=== PATIENT | male | born 1985 ===

== ENCOUNTER 2016-10-26 02:50 | Emergency (ER) | payer OTHER ==
--- NOTE | 2016-10-26 04:04 | ED ORDER SUMMARY ---
..... Patient: PRACHI ALMEIDA OrderSheet [facility] VisitID: [id number] [place] [address] 31y, M Registration Date/Time: 10/26/2016 ORDER SHEET Weight: 81.6 kg (stated) Allergies: No Known Drug Allergy GENERAL ORDERS: Rapid Influenza Screen (Nasal Pharyngeal) (swab) Urgent (03:12 10/26/2016 Javier RICE) (Ack 3:15 CHagerty ER Order Tracer) (3:21 TLewis R.N.) Chest 2V Urgent (03:29 10/26/2016 Javier RICE) (Ack 3:33 CHagerty ER Order Tracer) (3:56 CHagerty ER Order Tracer) MEDICATION ORDERS: Toradol IM 60 mg (NOW) (03:12 10/26/2016 Javier RICE) (Cancelled: Patient Refusal3:38 JQuivey R.N.) DuoNeb Neb Tx 1 unit dose (NOW) (03:29 10/26/2016 Javier RICE) (Ack 3:32 CHagerty ER Order Tracer) (3:56 CHagerty ER Order Tracer) Prednisone PO 60 mg (NOW) (03:29 10/26/2016 Javier RICE) (3:38 JQuivey R.N.) Levofloxacin PO 500 mg (NOW) (04:00 10/26/2016 Javier RICE) (4:08 TLewis R.N.) IV FLUIDS: ORDER SHEET NOTES: [Electronically signed by Carlos Wiley R.N. (04:11 10/26/2016)] [Electronically signed by Mariia Ayoub MD (15:44 10/31/2016)] [Electronically locked/signed by Carlos Wiley R.N. (04:11 10/26/2016)]
--- NOTE | 2016-10-26 04:04 | ED NURSING NOTES ---
Clinical Report - Nurses [facility] [address] [place] [address] 10/26/2016 2:53 Patient: PRACHI ALMEIDA TRIAGE Triage time 03:01. Acuity: LEVEL 4. Chief Complaint: COUGH, SORE THROAT and BODY ACHES. --03:06 Carlos Wiley R.N. 02:56 10/26/16. BP: 121/73. HR: 84. RR: 15. O2 saturation: 96%. Temp: 97.5 F. --03:06 Carlos Wiley R.N. Weight: 81.6 kg stated. Height/Length: 68 inches Per Patient. BMI: 27.4. --03:06 Carlos Wiley R.N. Medications None. --03:04 Carlos Wiley R.N. Allergies No Known Drug Allergy. --03:04 Carlos Wiley R.N. History Onset. (days ago). ( Pt was seen at [facility] and left AMA. Nothing was done at [facility].). 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 PAST MEDICAL HX: Immunizations: up-to-date. SURGERY HX: ( radial fx). SOCIAL HX: Current every day heavy tobacco smoker (cigarette)- 1 pack per day. No alcohol use or drug use. --03:06 Carlos Wiley R.N. PROBLEMS: no known problems. Interventions ID band on patient. To treatment room. --03:06 Carlos Wiley R.N. PHYSICAL ASSESSMENT ( Pt is also complaining of left sided jaw pain due to a cavity. Pt has not seen a dentist.). GENERAL / NEURO / PSYCH: Alert. Oriented X 4. Appears in no acute distress. HEENT: Pupils equal, round and reactive to light. Mucous membranes are pink. RESPIRATORY: Respirations not labored. Nonproductive cough. Chest nontender. Fine crackles in the right lung base. CVS: Normal sinus rhythm noted. Capillary refill less than 2 seconds. Pulses within normal limits. GI / : Abdomen soft and nontender and normal bowel sounds. SKIN: Skin intact. Skin is warm and dry. Normal skin turgor. --03:07 Carlos Wiley R.N. NURSING PROGRESS NOTES Two patient identifiers checked. Call light placed in reach. Side rails up x 1. Bed placed in lowest position. Brakes of bed on. --03:08 Carlos Wiley R.N. 03:38 10/26/2016 Prednisone PO 60 mg given. Allergies verified and confirmed 5 rights. --03:38 Manish Chao R.N. 03:31. Patient transported to radiology by stretcher with tech. --03:39 Manish Chao R.N. 03:36. Patient returned from radiology by stretcher with tech. --03:39 Manish Chao R.N. 03:46 10/26/2016 Duoneb (Ipratropium-Albuterol) Neb TX 1 unit dose given. Given by the respiratory therapist. Allergies verified and confirmed 5 rights. --03:56 Jeramie Bell, ER Real Estate Development Manager 04:08 10/26/2016 Levofloxacin PO 500 mg given. Allergies verified and confirmed 5 rights. --04:08 Carlos Wiley R.N. DISPOSITION / DISCHARGE Departure time: 0410. Condition at departure: improved. No learning barriers present. Discharge instructions provided and reviewed with the patient. Reviewed warnings. Reviewed medication(s). Treatments reviewed. Patient verbalized understanding. Written instructions provided in Czech. The patient was discharged by the physician. He was discharged home and unaccompanied at time of discharge. He left the Emergency Department ambulatory and via private vehicle. Patient driving. --04:11 Carlos Wiley R.N. 04:09 10/26/16. BP: 123/64. HR: 81. RR: 18. O2 saturation: 95%. Pain level now 11/28. --04:11 Carlos Wiley R.N. Locked/Released at 10/26/2016 4:11 by Carlos Wiley R.N.
--- NOTE | 2016-10-26 04:04 | ED CLINICAL REPORT ---
Clinical Report - Physicians/Mid Levels [facility] [address] [place] [place] [address] 10/26/2016 2:53 Patient: PRACHI ALMEIDA Time Seen: 03:11. Arrived- By private vehicle. Historian- patient. HISTORY OF PRESENT ILLNESS Chief Complaint: COUGH, SORE THROAT, CHILLS and MUSCLE ACHES. This started about 3 days ago and is still present. The illness is described as moderate. The patient has had a cough, a sore throat, nasal congestion, fever and chills. He has had muscle aches. No sputum production, difficulty breathing, chest discomfort or pain or hoarseness. No nasal discharge, sinus pressure, sinus drainage or ear pain. Additional history - No known contact with a sick individual. Similar symptoms previously: None. Recent medical care: Not recently seen/assessed. REVIEW OF SYSTEMS The patient has had a headache. No eye discomfort, nausea, vomiting, diarrhea or abdominal pain. No hay fever, pedal edema, calf pain, difficulty with urination or skin rash. No enlarged lymph nodes or joint pain. All systems otherwise negative, except as recorded above. PAST HISTORY Problems: no known problems. Additional Surgeries: Wrist. Medications: None. Allergies: No Known Drug Allergy. SOCIAL HISTORY Smoker- current status unknown. No alcohol use or drug use. ADDITIONAL NOTES The nursing notes have been reviewed. PHYSICAL EXAM Vital Signs: 10/26/2016 02:56 BP: 121/73. HR: 84. RR: 15. O2 saturation: 96%. Temp: 97.5 F. Have been reviewed. Appearance: Alert. No acute distress. (Pt appears moderately uncomfortable.). Eyes: Pupils equal, round and reactive to light. Eyes normal inspection. ENT: Nose normal. Pharynx normal. Uvula midline. Neck: Normal inspection. Neck supple. CVS: Normal heart rate and rhythm. Heart sounds normal. Pulses normal. Respiratory: No respiratory distress. Breath sounds normal. (PT coughs with every exhalation.). Abdomen: Soft and nontender. Back: Normal inspection. No CVA tenderness. Skin: Skin warm and dry. Normal skin color. No rash. Normal skin turgor. Extremities: Extremities exhibit normal ROM. No lower extremity edema. Neuro: Oriented X 3. No motor deficit. No sensory deficit. LABS, X-RAYS, AND EKG Chest X-ray: Small, patchy infiltrate in the right lower lobe. Consistent with pneumonia. Normal heart size. Mediastinum normal. Great vessels normal. Soft tissues normal. No fracture. No bony lesion present. Views: PA and lateral. Technique: good. The X-rays were independently viewed by me and interpreted contemporaneously by me. Prior films were not available for comparison. Laboratory Tests: Rapid Influenza Screen: ([place]: 10/26/2016 03:20) ( MsgRcvd 10/26/2016 03:36) Final results SPECIMEN DESCRIPTION: SWAB Test Result Flag Units (Reference) RAPID INFLUENZA SCREEN CALLED TO: NA -- DATE: 10/26/16 INFLUENZA A: NEGATIVE SCREEN FOR INFLUENZA A INFLUENZA B: NEGATIVE SCREEN FOR INFLUENZA B . Pulse Oximetry: 10/26/2016 02:56 O2 saturation: 96%. (FIO2 - room air). Interpretation: normal. PROGRESS AND PROCEDURES Course of Care: Pt was given prednisone and a duoneb, with improvement in his respiratory status. Pt was worked up with an influenza test and CXR. I felt his x-ray appearance was consistent with a small area of pneumonia, and pt was given Levaquin for this. No emergent condition was identified. Patient counseled in person regarding the patient's stable condition, test results, diagnosis and need for follow-up. Concerns were addressed. Old medical records reviewed. Disposition: Discharged. Condition: stable and improved. CLINICAL IMPRESSION Bacterial pneumonia. Vital signs recorded and reviewed; empiric antibiotics given in the ED and prescribed. No hypoxemia, respiratory failure or sepsis. INSTRUCTIONS Drink plenty of fluids. (Your influenza test is negative, but your x-ray does show a small area of pneumonia. You have been started on antibiotics for this in the emergency department.). Warnings: GENERAL WARNINGS: Return or contact your physician immediately if your condition worsens or changes unexpectedly, if not improving as expected, or if other problems arise. Prescription Medications: Levaquin 500 mg: take 1 tab orally every day for 7 days. No refills. Substitution is permissible. Follow-up: Follow up with your doctor in seven days if not better. Understanding of the discharge instructions verbalized by patient. (Electronically signed by Mariia Ayoub MD 10/31/2016 15:44)
--- NOTE | 2016-10-26 04:04 | ED ORDER SUMMARY ---
..... Patient: PRACHI ALMEIDA OrderSheet [facility] VisitID: [id number] [place] [address] 31y, M Registration Date/Time: 10/26/2016 ORDER SHEET Weight: 81.6 kg (stated) Allergies: No Known Drug Allergy GENERAL ORDERS: Rapid Influenza Screen (Nasal Pharyngeal) (swab) Urgent (03:12 10/26/2016 Javier RICE) (Ack 3:15 CHagerty ER Bleacher Operator) (3:21 TLewis R.N.) Chest 2V Urgent (03:29 10/26/2016 Javier RICE) (Ack 3:33 CHagerty ER Bleacher Operator) (3:56 CHagerty ER Bleacher Operator) MEDICATION ORDERS: Toradol IM 60 mg (NOW) (03:12 10/26/2016 Javier RICE) (Cancelled: Patient Refusal3:38 JQuivey R.N.) DuoNeb Neb Tx 1 unit dose (NOW) (03:29 10/26/2016 Javier RICE) (Ack 3:32 CHagerty ER Bleacher Operator) (3:56 CHagerty ER Bleacher Operator) Prednisone PO 60 mg (NOW) (03:29 10/26/2016 Javier RICE) (3:38 JQuivey R.N.) Levofloxacin PO 500 mg (NOW) (04:00 10/26/2016 Javier RICE) (4:08 TLewis R.N.) IV FLUIDS: ORDER SHEET NOTES: [Electronically signed by Carlos Wiley R.N. (04:11 10/26/2016)] [Electronically signed by Mariia Ayoub MD (15:44 10/31/2016)] [Electronically locked/signed by Carlos Wiley R.N. (04:11 10/26/2016)]
--- NOTE | 2016-10-26 04:04 | ED NURSING NOTES ---
Clinical Report - Nurses [facility] [address] [place] [address] 10/26/2016 2:53 Patient: PRACHI ALMEIDA TRIAGE Triage time 03:01. Acuity: LEVEL 4. Chief Complaint: COUGH, SORE THROAT and BODY ACHES. --03:06 Carlos Wiley R.N. 02:56 10/26/16. BP: 121/73. HR: 84. RR: 15. O2 saturation: 96%. Temp: 97.5 F. --03:06 Carlos Wiley R.N. Weight: 81.6 kg stated. Height/Length: 68 inches Per Patient. BMI: 27.4. --03:06 Carlos Wiley R.N. Medications None. --03:04 Carlos Wiley R.N. Allergies No Known Drug Allergy. --03:04 Carlos Wiley R.N. History Onset. (days ago). ( Pt was seen at [facility] and left AMA. Nothing was done at [facility].). Treatment DIRECTOR HOSPICE OPERATIONS: None. PAST MEDICAL HX: Immunizations: up-to-date. SURGERY HX: ( radial fx). SOCIAL HX: Current every day heavy tobacco smoker (cigarette)- 1 pack per day. No alcohol use or drug use. --03:06 Cralos Wiley R.N. PROBLEMS: no known problems. Interventions ID band on patient. To treatment room. --03:06 Carlos Wiley R.N. PHYSICAL ASSESSMENT ( Pt is also complaining of left sided jaw pain due to a cavity. Pt has not seen a dentist.). GENERAL / NEURO / PSYCH: Alert. Oriented X 4. Appears in no acute distress. HEENT: Pupils equal, round and reactive to light. Mucous membranes are pink. RESPIRATORY: Respirations not labored. Nonproductive cough. Chest nontender. Fine crackles in the right lung base. CVS: Normal sinus rhythm noted. Capillary refill less than 2 seconds. Pulses within normal limits. GI / : Abdomen soft and nontender and normal bowel sounds. SKIN: Skin intact. Skin is warm and dry. Normal skin turgor. --03:07 Carlos Wiley R.N. NURSING PROGRESS NOTES Two patient identifiers checked. Call light placed in reach. Side rails up x 1. Bed placed in lowest position. Brakes of bed on. --03:08 Carlos Wiley R.N. 03:38 10/26/2016 Prednisone PO 60 mg given. Allergies verified and confirmed 5 rights. --03:38 Manish Chao R.N. 03:31. Patient transported to radiology by stretcher with tech. --03:39 Manish Chao R.N. 03:36. Patient returned from radiology by stretcher with tech. --03:39 Manish Chao R.N. 03:46 10/26/2016 Duoneb (Ipratropium-Albuterol) Neb TX 1 unit dose given. Given by the respiratory therapist. Allergies verified and confirmed 5 rights. --03:56 Jeramie Bell, ER Team Assembly Line Machine Operator 04:08 10/26/2016 Levofloxacin PO 500 mg given. Allergies verified and confirmed 5 rights. --04:08 Carlos Wiley R.N. DISPOSITION / DISCHARGE Departure time: 0410. Condition at departure: improved. No learning barriers present. Discharge instructions provided and reviewed with the patient. Reviewed warnings. Reviewed medication(s). Treatments reviewed. Patient verbalized understanding. Written instructions provided in Mongolian. The patient was discharged by the physician. He was discharged home and unaccompanied at time of discharge. He left the Emergency Department ambulatory and via private vehicle. Patient driving. --04:11 Carlos Wiley R.N. 04:09 10/26/16. BP: 123/64. HR: 81. RR: 18. O2 saturation: 95%. Pain level now 11/28. --04:11 Carlos Wiley R.N. Locked/Released at 10/26/2016 4:11 by Carlos Wiley R.N.
--- NOTE | 2016-10-26 06:15 | DIAGNOSTIC IMAGING REPORT ---
PROCEDURE: XR CHEST 2 VIEW INDICATION: SHORTNESS OF BREATH TECHNIQUE: PA and lateral views. COMPARISON: None. FINDINGS: Lungs are clear. Heart and mediastinum are normal. Thorax is normal. IMPRESSION: 1. Negative chest.
--- NOTE | 2016-10-31 15:44 | ED MAR SUMMARY ---
..... Medication Administration Record [facility] [address] [place] [address] Patient: PRACHI ALMEIDA Visit ID: [id number] 31y, M Weight: 81.6 kg Height/Length: 68 in BMI: 27.4 ALLERGIES: No Known Drug Allergy Given 03:38 10/26/2016 Manish Chao RJerodNJerod Medication Administered: PREDNISONE [PO], Dose: 60 mg PO. Medication Ordered: Prednisone PO 60 mg (NOW). Given 03:46 10/26/2016 Jeramie Bell, BJ Water Hydrant Installer Medication Administered: DUONEB [NEB TX] (IPRATROPIUM-ALBUTEROL), Dose: 1 unit dose Neb TX. Medication Ordered: DuoNeb Neb Tx 1 unit dose (NOW). Given 04:08 10/26/2016 Carlos Wiley RGumaro Medication Administered: LEVOFLOXACIN [PO], Dose: 500 mg PO. Medication Ordered: Levofloxacin PO 500 mg (NOW).
--- NOTE | 2016-10-31 15:44 | ED MAR SUMMARY ---
..... Medication Administration Record [facility] [address] [place] [address] Patient: PRACHI ALMEIDA Visit ID: [id number] 31y, M Weight: 81.6 kg Height/Length: 68 in BMI: 27.4 ALLERGIES: No Known Drug Allergy Given 03:38 10/26/2016 Manish Chao RJerodNJerod Medication Administered: PREDNISONE [PO], Dose: 60 mg PO. Medication Ordered: Prednisone PO 60 mg (NOW). Given 03:46 10/26/2016 Jeramie Bell, BJ Benefits Counselor Medication Administered: DUONEB [NEB TX] (IPRATROPIUM-ALBUTEROL), Dose: 1 unit dose Neb TX. Medication Ordered: DuoNeb Neb Tx 1 unit dose (NOW). Given 04:08 10/26/2016 Carlos Wiley RGumaro Medication Administered: LEVOFLOXACIN [PO], Dose: 500 mg PO. Medication Ordered: Levofloxacin PO 500 mg (NOW).
--- NOTE | 2016-10-31 15:44 | ED DISCHARGE INSTRUCTIONS ---
Patient: PRACHI ALMEIDA General Instructions [facility] VisitID: [id number] [place] [address] 31y, M Registration Date/Time: 10/26/2016 Bacterial pneumonia. Vital signs recorded and reviewed; empiric antibiotics given in the ED and prescribed. No hypoxemia, respiratory failure or sepsis. INSTRUCTIONS Drink plenty of fluids. (Your influenza test is negative, but your x-ray does show a small area of pneumonia. You have been started on antibiotics for this in the emergency department.). Warnings: GENERAL WARNINGS: Return or contact your physician immediately if your condition worsens or changes unexpectedly, if not improving as expected, or if other problems arise. Prescription Medications: Levaquin 500 mg: take 1 tab orally every day for 7 days. No refills. Substitution is permissible. Follow-up: Follow up with your doctor in seven days if not better. Understanding of the discharge instructions verbalized by patient. ADDITIONAL INFORMATION Pneumonia (Adult) Pneumonia is an infection deep within the lung, in the small air sacs (alveoli). It may be due to a virus or bacteria and is usually treated with an antibiotic. Severe cases require treatment in the hospital. Milder cases can be treated at home. Symptoms usually start to improve during the first2 days of treatment. Home Care: Rest at home for the first 23 days or until you feel stronger. When resuming activity, dont let yourself become overly tired. Avoid exposure to cigarette smoke (yours or others). You may use acetaminophen (Tylenol) or ibuprofen (Motrin, Advil) to control fever or pain, unless another medicine was prescribed. [NOTE: If you have chronic liver or kidney disease or ever had a stomach ulcer or GI bleeding, talk with your doctor before using these medicines.] (Aspirin should never be used in anyone under 18 years of age who is ill with a fever. It may cause severe liver damage.) Your appetite may be poor so a light diet is fine. Keep well hydrated by drinking 68 glasses of fluids per day (water, sport drinks such as Gatorade, sodas without caffeine, juices, tea, soup, etc.). This will help loosen secretions in the lung, making it easier for you to cough up the phlegm (sputum). If you also have heart or kidney disease, check with your doctor before you drink extra amounts of fluids. Finish all antibiotic medicine prescribed, even if you are feeling better after a few days. Follow Up with your doctor in the next 23 days (or as advised) to be sure you are responding properly to the medicine. [NOTE: If you are age 65 or older, or if you have chronic lung disease (asthma, emphysema or COPD), we recommendthe pneumococcal vaccination and a yearlyinfluenzavaccination(flu-shot) every . Ask your doctor about this.] Get Prompt Medical Attention if any of the following occur: Not getting better within the first 48 hours of treatment Increasing shortness of breath or rapid breathing (over 25 breaths/minute) Coughing up blood or increasing chest pain with breathing Fever of 100.4F (38C) oral or higher, not better with fever medication Increasing weakness, dizziness or fainting Increasing thirst or dry mouth Sinus pain, headache or a stiff neck Chest pain not caused by coughing You have been given the following additional information: Pneumonia (Adult) (Electronically signed by Mariia Ayoub MD 10/31/2016 15:44)
--- NOTE | 2016-10-31 15:44 | ED MED RECONCILIATION SUMMARY ---
Patient: PRACHI ALMEIDA Medication Reconciliation Report [facility] VisitID: [id number] [address] [place] [address] 31y, M Registration Date/Time: 10/26/2016 Weight: 81.6 kg Height/Length: 68 in. BMI: 27.4 ALLERGIES: No Known Drug Allergy The patient's Home Medications are listed below: NONE. The source(s) of the original Home Medication information: Not obtained. The following Medications were given to the patient in the Emergency Department: Prednisone [PO] PO 60 mg, administered: 10/26/2016 3:38:00 AM Duoneb [Neb Tx] Neb TX 1 unit dose, administered: 10/26/2016 3:46:00 AM Levofloxacin [PO] PO 500 mg, administered: 10/26/2016 4:08:00 AM The following Medications were prescribed to the patient: Levaquin 500 mg: take 1 tab orally every day for 7 days. No refills. Substitution is permissible. -- Mariia Ayoub MD
--- NOTE | 2016-10-31 15:44 | ED MED RECONCILIATION SUMMARY ---
Patient: PRACHI ALMEIDA Medication Reconciliation Report [facility] VisitID: [id number] [address] [place] [address] 31y, M Registration Date/Time: 10/26/2016 Weight: 81.6 kg Height/Length: 68 in. BMI: 27.4 ALLERGIES: No Known Drug Allergy The patient's Home Medications are listed below: NONE. The source(s) of the original Home Medication information: Not obtained. The following Medications were given to the patient in the Emergency Department: Prednisone [PO] PO 60 mg, administered: 10/26/2016 3:38:00 AM Duoneb [Neb Tx] Neb TX 1 unit dose, administered: 10/26/2016 3:46:00 AM Levofloxacin [PO] PO 500 mg, administered: 10/26/2016 4:08:00 AM The following Medications were prescribed to the patient: Levaquin 500 mg: take 1 tab orally every day for 7 days. No refills. Substitution is permissible. -- Mariia Ayoub MD
== END 2016-10-26 04:10 | disposition home or self-care (01) ==
LOC: ED SRH 02:50
DX: J15.9 Unspecified bacterial pneumonia (principal); F17.210 Nicotine dependence, cigarettes, uncomplicated
CPT/HCPCS: 91400